=== PATIENT | female | born 1995 | race African-American/Black ===

== ENCOUNTER 2022-01-16 16:43 | Emergency (ER) | payer MEDICAID, SELFPAY ==
[2022-01-16 16:49] VITALS: BP 133/71; PULSE 62; RESP 20; TEMP 36; O2SAT 98; BMI 44.3
--- NOTE | 2022-01-16 17:36 | ED.EAR ---
HPI - Ear Problem General Time Seen by Provider: 17:00 Date Seen: 01/16/22 Chief complaint: Ear/Nose/Throat Problem Stated complaint: Right side ear pain Time Seen by Provider: 01/16/22 16:53 Source: patient, RN notes reviewed and old records reviewed Mode of arrival: ambulatory Limitations: no limitations History of Present Illness HPI Narrative: Patient is a very pleasant 26-year-old female with recent COVID infection who comes to the emergency room with complaints of right ear pain. Patient had the onset of COVID symptoms on MondayJanuary 10. Her daughter had previously tested positive. She has not had a formal test done but notes that she had cough congestion runny nose. She notes that she is feeling better at this time. Today would be day 7. Three days ago she had the onset of right ear pressure. She states that it feels like her ear drum is bulging out. She also notes when she sneezes that she can feel increased pressure in her right ear. She notes that she also has had drainage from this ear. She states that it does hurt on the outside of her ear and with external ear movement. I do ask her if she has been swimming lately and she states that she had been doing a lot of swimming prior to coming down with COVID. She remembers when she was little that she would have to wear ear plugs in the pool because of problems. She has been using Tylenol for discomfort and it has helped somewhat. Complaint: ear pain, ear discharge and decreased hearing Location: right ear Duration: constant Related Data Previous Rx's Medication Instructions Recorded fluoxetine 40 mg capsule 40 mg PO QDAY #30 caps 12/14/21 fluticasone propionate 50 2 spray intranasal QDAY #16 grams 12/14/21 mcg/actuation nasal spray,suspension (Allergy Relief (fluticasone)) Allergies Allergy/AdvReac Type Severity Reaction Status Date / Time No Known Drug Allergies Allergy Verified 01/16/22 16:52 Review of Systems Narrative: Patient notes improvement of cough. She did have fever initially with COVID but has not had a fever in the last 3 days. Denies vomiting today. Did have diarrhea initially with COVID last week. PFSH PFS Social History Smoking Status: Current every day smoker What tobacco products do you use: cigarettes Do you use any of these nicotine containing products: None Second hand tobacco smoke exposure: No How often do you have a drink containing alcohol: 2-3 times a week How many standard drinks containing alcohol do you have on a typical day: 3 or 4 How often do you have six or more drinks on one occasion: Less than monthly AUDIT-C Alcohol total score: 5 Non-prescribed substance use: denies use Exam Const: Vital Signs, click to edit/add: Vital Signs - 24 hr 01/16/22 16:49 Temperature 96.8 F L Pulse Rate [Right Pulse Oximeter] 62 Respiratory Rate 20 Blood Pressure [Ri ght Upper Arm] 133/71 Pulse Oximetry 98 Oxygen Delivery Me thod Room Air Documenting provider has reviewed patient's vital signs: yes Common normals: no apparent distress, oriented x3, no limitations, healthy appearing and alert General appearance: cooperative, comfortable and well ket HENMT: Common normals: normocephalic and head/scalp atraumatic Head and scalp: normocephalic and atraumatic External auditory canal: EAC abnormal (Increased edema and debris right ear canal) EAC laterality: right Tympanic membrane: TM normal on the left Eye: General eye: normal appearance of both eyes Neck & C-Spine: Common normals: full ROM Resp: Common normals: normal respiratory effort and clear to auscultation bilaterally Auscultation: clear to auscultation bilaterally Cardio: Common normals: regular rate and regular rhythm Rate: regular rate Rhythm: regular rhythm GI: Common normals: soft to palpation and non-tender Palpation: soft Neuro: Common normals: oriented x3 Sensorium/orientation: alert Psych: Appearance: well kempt Course Course Hospital Course: At this time patient appears to be nontoxic. She is not a diabetic. I was finally able to visualize the TM on the right and it appears to be intact and non erythematous. However, patient does have swimmer's ear or otitis externa. A wick was gently placed and patient tolerated procedure well. Vital Signs Vital signs: Initial Vital Signs Temperature 96.8 F L 01/16/22 16:49 Temperature Source Temporal Artery Scan 01/16/22 16:49 Pulse Rate 62 01/16/22 16:49 Respiratory Rate 20 01/16/22 16:49 Blood Pressure 133/71 01/16/22 16:49 Blood Pressure Mean 91 08/14/22 16:49 Blood Pressure Position Sitting 01/16/22 16:49 Pulse Oximetry 98 01/16/22 16:49 Oxygen Delivery Method 01/16/22 16:49 Vital Signs Temperature 96.8 F L 01/16/22 16:49 Pulse Rate 62 01/16/22 16:49 Respiratory Rate 20 01/16/22 16:49 Blood Pressure 133/71 01/16/22 16:49 Pulse Oximetry 98 01/16/22 16:49 Oxygen Delivery Method 01/16/22 16:49 Temperature 96.8 F L 01/16/22 16:49 Pulse Rate 62 01/16/22 16:49 Respiratory Rate 20 01/16/22 16:49 Blood Pressure 133/71 01/16/22 16:49 Pulse Oximetry 98 01/16/22 16:49 Oxygen Delivery Method 01/16/22 16:49 Medical Decision Making MDM Narrative Medical decision making narrative: 1. Right otitis externa-patient will be started on the only drops we have here which is Cortisporin otic in [facility]. She does not appear to need oral antibiotics. Three drops right ear 5 times daily for 7 days. Recommend follow-up with our ENT for recheck to ensure resolution. Patient is advised to return to the emergency room for fever, worsening symptoms and as needed. I believe her infection is from swimming and not from COVID 2. COVID-patient is on day 7 of symptoms and appears to be doing well. 3. Disposition- home. Return as needed. Discharge Plan Discharge Clinical Impression: Otitis externa Patient Disposition: Home, Self-Care Condition: Improved Additional Instructions: Recommend 3 drops into the right ear 5 times daily if possible. Recommend ibuprofen as needed for discomfort. Please follow-up with Dr. Jimenez for recheck. Call for appointment at [phone]. Return to the emergency room for fever, worsening pain and as needed. Prescriptions: No Action fluoxetine 40 mg capsule 40 mg PO QDAY Qty: 30 0RF fluticasone propionate [Allergy Relief (fluticasone)] 50 mcg/actuation spray,suspension 2 spray intranasal QDAY Qty: 16 11RF Rx Instructions: administer into each nostril Follow Up/Referrals: Michele Bella MD [Primary Care Provider] - Stand Alone Forms: [facility] Info Instructions
== END 2022-01-16 17:52 | disposition home or self-care (01) ==
LOC: ED 17:40
PROVIDERS: Emergency Provider Family Medicine; PCP Family Medicine
DX: H60.91 Unspecified otitis externa, right ear (principal)
CPT/HCPCS: 99283; 99284

== ENCOUNTER 2022-01-17 06:06 | Emergency (ER) | payer MEDICAID, SELFPAY ==
[2022-01-17 06:19] VITALS: BP 127/84; PULSE 54; RESP 16; TEMP 36.4; O2SAT 99; BMI 44.3
--- NOTE | 2022-01-17 06:38 | ED.GENADULT ---
HPI - General Adult General Time Seen by Provider: 06:38 Date Seen: 01/17/22 Chief complaint: Ear/Nose/Throat Problem Stated complaint: Ear infection Time Seen by Provider: 01/17/22 06:33 Source: patient Mode of arrival: ambulatory Limitations: no limitations History of Present Illness HPI narrative: 26-year-old female who comes in with ear pain. Patient was seen yesterday and diagnosed with otitis externa, ear wick was placed. Patient returns today with continued pain. Decreased hearing. No fever chills, no difficulty swallowing or throat pain. Has been using ear drops as directed, took Tylenol about 2 hours prior to coming emergency department. Related Data Home Medications Medication Instructions Recorded Confirmed Tylenol 01/17/22 [id number]-[id number]-thonzonium otic (ear) 01/17/22 Previous Rx's Medication Instructions Recorded fluoxetine 40 mg capsule 40 mg PO QDAY #30 caps 12/14/21 fluticasone propionate 50 2 spray intranasal QDAY #16 grams 12/14/21 mcg/actuation nasal spray,suspension (Allergy Relief (fluticasone)) Allergies Allergy/AdvReac Type Severity Reaction Status Date / Time No Known Drug Allergies Allergy Verified 01/17/22 06:23 Review of Systems Status of ROS: Reports: 10 or more systems reviewed and unremarkable except as noted in History and below PFSH PFS Social History Smoking Status: Current every day smoker What tobacco products do you use: cigarettes Do you use any of these nicotine containing products: None Second hand tobacco smoke exposure: No How often do you have a drink containing alcohol: 2-3 times a week How many standard drinks containing alcohol do you have on a typical day: 3 or 4 How often do you have six or more drinks on one occasion: Less than monthly AUDIT-C Alcohol total score: 5 Non-prescribed substance use: denies use Exam Narrative: Exam Narrative: General: well nourished , NAD Head: Atraumatic and normocephalic ENT: External ears and external nose are normal. Ear wick in place on the right, this was removed. Moderate swelling of the external auditory canal without drainage, tympanic membrane is pearly marx them out bulging or erythema Eyes: Conjunctiva clear, pupils are equal reactive, external ocular motions are intact Neck: Full spontaneous range of motion of the neck Lungs: No respiratory distress Musculoskeletal: No tenderness or deformity Neurologic: No gross focal neurologic deficits Skin: No rashes Psych: Mood and affect are appropriate Const: Vital Signs, click to edit/add: Vital Signs - 24 hr 01/17/22 06:19 Temperature 97.6 F Pulse Rate [Right Pulse Oximeter] 54 L Respiratory Rate 16 Blood Pressure [Le ft Upper Arm] 127/84 Pulse Oximetry 99 Oxygen Delivery Me thod Room Air Course Course Hospital Course: Patient seen examined, prior records reviewed reviewed. Patient diagnosed with otitis externa yesterday, ear wick was placed and patient was given ear drops. Ear wick read moved here, tympanic membrane is visualized with no bulging or redness. Continue antibiotic drops, Tylenol ibuprofen as needed for pain. Vital Signs Vital signs: Initial Vital Signs Temperature 97.6 F 01/17/22 06:19 Temperature Source Temporal Artery Scan 01/17/22 06:19 Pulse Rate 54 L 01/17/22 06:19 Respiratory Rate 16 01/17/22 06:19 Blood Pressure 127/84 01/17/22 06:19 Blood Pressure Mean 98 01/17/22 06:19 Blood Pressure Position Sitting 01/17/22 06:19 Pulse Oximetry 99 01/17/22 06:19 Oxygen Delivery Method 01/17/22 06:19 Vital Signs Temperature 97.6 F 01/17/22 06:19 Pulse Rate 54 L 01/17/22 06:19 Respiratory Rate 16 01/17/22 06:19 Blood Pressure 127/84 01/17/22 06:19 Pulse Oximetry 99 01/17/22 06:19 Oxygen Delivery Method 01/17/22 06:19 Temperature 97.6 F 01/17/22 06:19 Pulse Rate 54 L 01/17/22 06:19 Respiratory Rate 16 01/17/22 06:19 Blood Pressure 127/84 01/17/22 06:19 Pulse Oximetry 99 01/17/22 06:19 Oxygen Delivery Method 01/17/22 06:19 Medical Decision Making Medical Records Medical records reviewed: Yes I reviewed the patient's medical records Lab Data Lab results reviewed: Yes I reviewed the patient's lab results Discharge Plan Discharge Clinical Impression: Otitis externa Patient Disposition: Home, Self-Care Condition: Improved Instructions: Otitis Externa (DC) Additional Instructions: Continue ear drops as prescribed, Tylenol and ibuprofen as needed for pain Activity Level: No Restrictions Discharge Diet: Regular Prescriptions: No Action [id number]-OH-thonzonium [Cortisporin-TC] otic (ear) Tylenol fluoxetine 40 mg capsule 40 mg PO QDAY Qty: 30 0RF fluticasone propionate [Allergy Relief (fluticasone)] 50 mcg/actuation spray,suspension 2 spray intranasal QDAY Qty: 16 11RF Rx Instructions: administer into each nostril Follow Up/Referrals: Michele Bella MD [Primary Care Provider] - Stand Alone Forms: [employer] Info Instructions
== END 2022-01-17 06:51 | disposition home or self-care (01) ==
LOC: ED 06:43
PROVIDERS: Emergency Provider Family Medicine; PCP Family Medicine
DX: H60.91 Unspecified otitis externa, right ear (principal)
CPT/HCPCS: 99282

== ENCOUNTER 2023-03-03 15:03 | Outpatient (CLI) | payer MEDICAID, SELFPAY | END 2023-03-03 15:04 | disposition home or self-care (01) | PROVIDERS: PCP Family Medicine; Visit Provider Family Medicine | DX: F10.10 Alcohol abuse, uncomplicated (principal) | CPT/HCPCS: 80048; 80076 ==

== ENCOUNTER 2023-03-30 11:49 | Emergency (ER) | payer MEDICAID, SELFPAY ==
[2023-03-30 12:01] VITALS: BP 139/95; PULSE 118; RESP 16; TEMP 36.8; O2SAT 97; BMI 37.8
[2023-03-30 13:05] LABS: Strep A DNA Probe* DETECTED (Not Detectd)
--- NOTE | 2023-03-30 14:16 | ED.GENADULT ---
HPI - General Adult General Chief complaint: Dizziness/Vertigo Stated complaint: Heart pounding, faint Time Seen by Provider: 03/30/23 13:21 History of Present Illness HPI narrative: This is a pleasant 27-year-old female who has a past medical history including ADHD and depression/anxiety (on Adderall, fluoxetine, bupropion) who presents to the ER today with an episode of dizziness, lightheadedness, heart racing, as well as a sore throat. When she woke up this morning she had a sore throat on the left side of her throat. No recent sick exposures. Was sore when she swallowed but she was able to eat and drink. She feels like she is staying hydrated. She was at work this morning at around 11 in addition to the sore throat began to feel dizzy, lightheaded. She felt like her heart was racing. She also developed tingling affecting both of her hands and forearms. She did not faint. She thought maybe she might be dehydrated so she sat down to drink some water but did not feel much better. She felt dizzy and lightheaded so had her co-worker drive her here to the ER. She has an [employer] watch and told her that her heart rate was around 150. Now that she is here in the ER she is feeling a bit better but still somewhat dizzy and shaky. Heart rate has improved down to the 100s-110. She was not having any chest pain. No shortness of breath. No cough. No vomiting. No diarrhea. No swelling in her legs. Or she has not had a fever yet. He she has no history of any heart problems or arrhythmia. No family history of heart problems or sudden . Related Data Home Medications Medication Instructions Recorded Confirmed paraguard intrauterine 02/11/22 03/03/23 Previous Rx's Medication Instructions Recorded albuterol sulfate 90 mcg/actuation 2 puff inhalation Q4-6H PRN 02/11/22 aerosol inhaler (ProAir HFA) shortness of breath or wheezing #8.5 grams bupropion HCl 300 mg 24 hr tablet, 300 mg PO QAM #90 tabs 07/29/22 extended release (Wellbutrin XL) ondansetron 4 mg disintegrating 4 mg PO Q6H PRN nausea and 10/24/22 tablet vomiting #30 tabs dextroamphetamine-amphetamine ER 30 mg PO QAM #30 caps 03/03/23 30 mg 24hr capsule,extend release (Adderall XR) dextroamphetamine-amphetamine ER 30 mg PO QAM #30 caps 03/03/23 30 mg 24hr capsule,extend release (Adderall XR) fluoxetine 40 mg capsule 40 mg PO QDAY #90 caps 03/03/23 azithromycin 500 mg tablet 500 mg PO DAILY 5 days #5 tabs 03/30/23 Allergies Allergy/AdvReac Type Severity Reaction Status Date / Time amoxicillin Allergy Unknown Unknown Verified 03/30/23 12:00 [facility] Medical History (Updated 03/30/23 @ 13:[address] MD) ETOH abuse ?F10.10 - Alcohol abuse, uncomplicated (ICD-10) ADHD, predominantly inattentive type ?F90.0 - Attention-deficit hyperactivity disorder, predominantly inattentive type (ICD-10) ASCUS with positive high risk HPV Suicidal ideation ?R45.851 - Suicidal ideations (ICD-10) Insomnia ?G47.00 - Insomnia, unspecified (ICD-10) Seasonal allergies ?J30.2 - Other seasonal allergic rhinitis (ICD-10) Anxiety ?F41.9 - Anxiety disorder, unspecified (ICD-10) Major depression, recurrent ?F33.9 - Major depressive disorder, recurrent, unspecified (ICD-10) Surgical History Normal spontaneous vaginal delivery ?O80 - Encounter for full-term uncomplicated delivery (ICD-10) History of lumpectomy (2008) ?Z98.890 - Other specified postprocedural states (ICD-10) Family History Mother Bipolar 1 disorder Maternal Grandmother Cancer Other Breast cancer Social History Narrative: Single, Live in boyfriend - one kid social drinker 6/per week tobacco abuse 10-12 a day-4 years Smoking Status: Current every day smoker What tobacco products do you use: cigarettes Smoking packs per day: 0.5 Smoking cigarettes per day: 10.0 Years smoked: 10 Smoking pack-years: 5.00 Do you use any of these nicotine containing products: None Second hand tobacco smoke exposure: No How often do you have a drink containing alcohol: 4 or more times a week How many standard drinks containing alcohol do you have on a typical day: 5 or 6 How often do you have six or more drinks on one occasion: Weekly AUDIT-C Alcohol total score: 9 Non-prescribed substance use: denies use Little interest or pleasure in doing things: several days Feeling down, depressed, or hopeless: more than half the days service: No Exam Narrative: Exam Narrative: Constitutional: Appears well-developed and well-nourished. Alert. Conversant. Non toxic. HENT: Head: Atraumatic. Nose: Nose normal. Mouth/Throat: Oral mucosa is clear and moist. no trismus. Pharynx erythematous.. Tonsils symmetric. Uvula midline. Phonation normal. No tonsillar erythema, or exudate. Eyes: Conjunctivae normal. EOM normal. Pupils equal, round, and reactive to light. No scleral icterus. Neck: Normal range of motion. Neck supple. No tracheal deviation present. No JVD. No thyromegaly Cardiovascular: Tachycardic, regular rhythm. No gallop. No friction rub. No murmur heard. Symmetric radial artery pulses Pulmonary/Chest: Effort normal. No stridor. No respiratory distress. No wheezes. No rales. No rhonchi . No tenderness. Abdominal: Soft. Bowel sounds normal. No distension. No mass. No HSM. No tenderness. No rebound. No guarding. Musculoskeletal: RUE: Normal range of motion. No tenderness. No deformity LUE: Normal range of motion. No tenderness. No deformity RLE: Normal range of motion. No edema. No tenderness. No deformity LLE: Normal range of motion. No edema. No tenderness. No deformity Lymph: No cervical adenopathy. Neurological: Alert and oriented to person, place, and time. Normal strength. CN II-VII intact. No sensory deficit. GCS eye subscore is 4. GCS verbal subscore is 5. GCS motor subscore is 6. Normal coordination Skin: Skin is warm and dry. No rash noted. No pallor. Normal capillary refill. Psychiatric: Normal mood. Normal affect. Const: Vital Signs, click to edit/add: Vital Signs - 24 hr 03/30/23 12:01 Temperature 98.2 F Pulse Rate [Pulse Oximeter] 118 H Respiratory Rate 16 Blood Pressure [Ri ght Upper Arm] 139/95 H Pulse Oximetry 97 Oxygen Delivery Me thod Room Air Course Vital Signs Vital signs: Initial Vital Signs Temperature 98.2 F 03/30/23 12:01 Temperature Source Temporal Artery Scan 03/30/23 12:01 Pulse Rate 118 H 03/30/23 12:01 Pulse Rhythm Regular 03/30/23 12:01 Pulse Strength 3+ Normal 03/30/23 12:01 Respiratory Rate 16 03/30/23 12:01 Blood Pressure 139/95 H 03/30/23 12:01 Blood Pressure Mean 109 H 03/30/23 12:01 Blood Pressure Position Sitting 03/30/23 12:01 Pulse Oximetry 97 03/30/23 12:01 Oxygen Delivery Method Room Air 03/30/23 12:01 Vital Signs Temperature 98.2 F 03/30/23 12:01 Pulse Rate 118 H 03/30/23 12:01 Respiratory Rate 16 03/30/23 12:01 Blood Pressure 139/95 H 03/30/23 12:01 Pulse Oximetry 97 03/30/23 12:01 Oxygen Delivery Method Room Air 03/30/23 12:01 Temperature 98.2 F 03/30/23 12:01 Pulse Rate 118 H 03/30/23 12:01 Respiratory Rate 16 03/30/23 12:01 Blood Pressure 139/95 H 03/30/23 12:01 Pulse Oximetry 97 03/30/23 12:01 Oxygen Delivery Method Room Air 03/30/23 12:01 Medical Decision Making MDM Narrative Medical decision making narrative: This patient presented with a episode of dizziness and heart racing that began around 11:00 a.m. this morning also associated with sore throat that began when she woke up this morning. In terms of her sore throat, she does have clinical evidence of pharyngitis. The strep test is positive. There is no clinical evidence of peritonsillar abscess, retropharyngeal abscess, Lemierre's Syndrome, epiglottis, or Eduin's angina. The patient's symptoms are consistent with streptococcal pharyngitis. I have recommended treatment with antibiotics and analgesics. In terms of the dizzy spell I suspect this is probably a constitutional symptom related to her strep throat. Differential would include cardiovascular problems such as arrhythmia. She was not having any chest pain suggest ACS, PE, or other life-threatening causes. No cough, no shortness of breath, and clear lungs on exam would argue against any wheezing or bronchospasm, or pneumonia. Would hold off on chest x-ray for now. EKG with G was obtained to look for possible arrhythmias or arrhythmogenic abnormalities. EKG shows sinus tach with heart rate of 105. No WPW, delta waves, prolonged QT, Brugada syndrome, ischemia, or any other clear rhythm genic abnormality. At this point she is feeling better. She is hemodynamically stable is a side for sinus tach. She is not febrile. She is not toxic appearing. Doubt bacteremia. Well managed supportively at home with oral fluids, pain meds as needed, rest. Return if increasing pain, change in voice, neck pain, vomiting, fever, worsening dizziness, developing chest pain or shortness of breath, or any other concerns.. Follow-up with primary physician if not improving in 3-5 days Lab Data Labs: Lab Results 03/30/23 Range/Units 12:05 Group A Strep DNA DETECTED A (Not Detectd) ECG Data Attestation: I personally reviewed and interpreted this ECG as follows: Interpretation: Sinus tachycardia. Rate 102 VA 142. No delta waves. QRS axis normal axis. No pathologic Q-waves. ST segment/T wave: No ST segment elevation or depression. QTc: 430. No Brugada syndrome. No S1 Q 3 T3. No right a right bundle-branch block or other signs of right heart strain. Discharge Plan Discharge Clinical Impression: Dizziness, Acute streptococcal pharyngitis Patient Disposition: Home, Self-Care Condition: Stable Instructions: Strep Throat (DC), Dizziness (ED) Additional Instructions: As we discussed your EKG looks good. We suspect that your racing heart and dizzy spell or probably symptoms of your strep throat. Please start on the antibiotics to treat your strep throat. Rest. Use Tylenol or ibuprofen if needed for pain or fever or body aches. Drink plenty of fluids and stay hydrated. Monitor carefully. If you have worsening symptoms, please see your doctor right away or come back to the ER for recheck. If you are getting worse you may need IV fluids and lab workup. It typically takes several days for strep to get better after starting on antibiotics. You will be contagious with strep for the 1st 24 hours, so stay home from work at least through tomorrow Prescriptions: New azithromycin 500 mg tablet 500 mg PO DAILY 5 Days Qty: 5 0RF No Action paraguard intrauterine albuterol sulfate [ProAir HFA] 90 mcg/actuation HFA aerosol inhaler 2 puff inhalation Q4-6H PRN (Reason: shortness of breath or wheezing) Qty: 8.5 1RF bupropion HCl [Wellbutrin XL] 300 mg tablet extended release 24 hr 300 mg PO QAM Qty: 90 3RF dextroamphetamine-amphetamine [Adderall XR] 30 mg capsule,extended release 24hr 30 mg PO QAM Qty: 30 0RF dextroamphetamine-amphetamine [Adderall XR] 30 mg capsule,extended release 24hr 30 mg PO QAM Qty: 30 0RF fluoxetine 40 mg capsule 40 mg PO QDAY Qty: 90 3RF ondansetron 4 mg tablet,disintegrating 4 mg PO Q6H PRN (Reason: nausea and vomiting) Qty: 30 0RF Follow Up/Referrals: Michele Bella MD [Primary Care Provider] - Stand Alone Forms: [employer] Info Instructions
== END 2023-03-30 14:08 | disposition home or self-care (01) ==
PROVIDERS: Emergency Provider Emergency Medicine; PCP Family Medicine
DX: J02.0 Streptococcal pharyngitis (principal); R42 Dizziness and giddiness
CPT/HCPCS: 87651; 93005; 99283; 99284

== ENCOUNTER 2023-07-26 18:20 | Emergency (ER) | payer MEDICAID, SELFPAY ==
[2023-07-26 18:33] VITALS: BP 146/101; PULSE 93; RESP 14; TEMP 37.4; O2SAT 97; BMI 36.9
[2023-07-26 18:45] LABS: Appearance Urine Clear (Clear); Bilirubin Urine Negative (Negative); Blood Urine Negative (Negative); Color Urine Yellow (Yellow); Glucose Urine Negative (Negative); Ketones Urine Negative (Negative); Leukocyte Esterase Urine Negative (Negative); Nitrite Urine Negative (Negative); Protein Urine Negative (Negative); Urobilinogen Urine 0.2 (0.2-1.0); pH Urine 6.5 (5.0-8.5)
--- NOTE | 2023-07-26 19:07 | ED.ABDPAIN ---
HPI - Abdominal Pain General Time Seen by Provider: 19:07 Date Seen: 07/26/23 Chief Complaint: Abdominal Pain Stated Complaint: Abdominal pain Time Seen by Provider: 07/26/23 19:06 Source: patient and RN notes reviewed Mode of arrival: ambulatory Limitations: no limitations History of Present Illness HPI narrative: Jeannine is a very pleasant 27-year-old female with history of alcohol use, ADHD, elevated liver function tests who comes to the emergency room with worries regarding abdominal pain. Patient notes the onset of abdominal pain today initially in the periumbilical area. She describes it as a stabbing pain. The pain then radiated to her right lower quadrant. Tonight it is in her right lower quadrant but again she is experiencing periumbilical feeling. She states she looked in her belly button but did not see anything. She has not had any unusual diarrhea. She has no chest pain shortness of breath and has not had a fever. She denies dysuria or blood in her urine or history of kidney stones. Patient is wondering if we will be testing for pancreatitis as she does use alcohol frequently. Patient is a single mother. She has her mother in [facility] and her child who companies her with her tonight goes to daycare during the day. Related Data Home Medications Medication Instructions Recorded Confirmed paraguard intrauterine 02/11/22 06/20/23 Previous Rx's Medication Instructions Recorded albuterol sulfate 90 mcg/actuation 2 puff inhalation Q4-6H PRN 02/11/22 aerosol inhaler (ProAir HFA) shortness of breath or wheezing #8.5 grams bupropion HCl 300 mg 24 hr tablet, 300 mg PO QAM #90 tabs 07/29/22 extended release (Wellbutrin XL) fluoxetine 40 mg capsule 40 mg PO QDAY #90 caps 03/03/23 dextroamphetamine-amphetamine ER 30 mg PO QAM #30 caps 06/06/23 30 mg 24hr capsule,extend release (Adderall XR) dextroamphetamine-amphetamine ER 30 mg PO QAM #30 caps 06/06/23 30 mg 24hr capsule,extend release (Adderall XR) Allergies Allergy/AdvReac Type Severity Reaction Status Date / Time amoxicillin Allergy Unknown Unknown Verified 07/26/23 20:19 Review of Systems Status of ROS Reports: 10 or more systems reviewed and unremarkable except as noted in History and below Const Reports: fatigue; Denies: fever or chills Eyes Denies: change in vision ENMT Denies: neck pain or throat swelling Cardio Denies: chest pain, palpitations, swelling of feet/ankles or shortness of breath with exertion Resp Denies: shortness of breath or cough GI Reports: abdominal pain, nausea and vomiting (One episode); Denies: diarrhea, constipation or blood in stool Denies: painful urination, urinary frequency or urinary urgency Musculo Denies: back pain or neck pain Integ/Breast Denies: rash Neuro Denies: headache or numbness in extremities Endo Reports: fatigue Allergy/Immuno Denies: throat swelling PFSH PFSH Medical History ETOH abuse ?F10.10 - Alcohol abuse, uncomplicated (ICD-10) ADHD, predominantly inattentive type ?F90.0 - Attention-deficit hyperactivity disorder, predominantly inattentive type (ICD-10) ASCUS with positive high risk HPV Suicidal ideation ?R45.851 - Suicidal ideations (ICD-10) Insomnia ?G47.00 - Insomnia, unspecified (ICD-10) Seasonal allergies ?J30.2 - Other seasonal allergic rhinitis (ICD-10) Anxiety ?F41.9 - Anxiety disorder, unspecified (ICD-10) Major depression, recurrent ?F33.9 - Major depressive disorder, recurrent, unspecified (ICD-10) Surgical History Normal spontaneous vaginal delivery ?O80 - Encounter for full-term uncomplicated delivery (ICD-10) History of lumpectomy (2008) ?Z98.890 - Other specified postprocedural states (ICD-10) Family History Mother Bipolar 1 disorder Maternal Grandmother Cancer Other Breast cancer Social History Narrative: Single, Live in boyfriend - one kid social drinker 6/per week tobacco abuse 10-12 a day-4 years Smoking Status: Current every day smoker What tobacco products do you use: cigarettes Smoking packs per day: 0.5 Smoking cigarettes per day: 10.0 Years smoked: 10 Smoking pack-years: 5.00 Do you use any of these nicotine containing products: None Second hand tobacco smoke exposure: No How often do you have a drink containing alcohol: 4 or more times a week How many standard drinks containing alcohol do you have on a typical day: 5 or 6 How often do you have six or more drinks on one occasion: Weekly AUDIT-C Alcohol total score: 9 Non-prescribed substance use: denies use Little interest or pleasure in doing things: several days Feeling down, depressed, or hopeless: more than half the days service: No Exam Narrative: Exam Narrative: Patient is alert and oriented. No acute distress. I do not smell the odor of alcohol. External ears eyes nose clear. Neck is supple without lymphadenopathy. Heart with regular rate and rhythm and lungs are clear bilaterally. Abdomen is with mild tenderness in the right lower quadrant. No significant rebound tenderness. I do hit the bottom of her foot and there is no pain in the abdomen. Internal external rotation of the hip does not cause increased discomfort. Bowel sounds are present and are normal. Const: Vital Signs, click to edit/add: Vital Signs - 24 hr 07/26/23 18:33 Temperature 99.3 F Pulse Rate [Pulse Oximeter] 93 Respiratory Rate 14 Blood Pressure [Ri ght Upper Arm] 146/101 H Pulse Oximetry 97 Oxygen Delivery Me thod Room Air Documenting provider has reviewed patient's vital signs: yes Course Course ED Course: At this time differential diagnosis does include but is not limited to appendicitis, bowel obstruction, colitis, hernia, UTI, kidney stone, pancreatitis, biliary colic, GI enteritis. Will place IV give normal saline as well as dose of Toradol. Given patient's worries regarding her alcohol use, abdominal discomfort I do think we should proceed with CT even though we do not have labs returned at this time. Patient is in agreement. Vital Signs Vital signs: Initial Vital Signs Temperature 99.3 F 07/26/23 18:33 Temperature Source Oral 07/26/23 18:33 Pulse Rate 93 07/26/23 18:33 Pulse Rhythm Regular 07/26/23 18:33 Respiratory Rate 14 07/26/23 18:33 Blood Pressure 146/101 H 07/26/23 18:33 Blood Pressure Mean 116 H 07/26/23 18:33 Blood Pressure Position Sitting 07/26/23 18:33 Pulse Oximetry 97 07/26/23 18:33 Oxygen Delivery Method Room Air 07/26/23 18:33 Vital Signs Temperature 99.3 F 07/26/23 18:33 Pulse Rate 93 07/26/23 18:33 Respiratory Rate 14 07/26/23 18:33 Blood Pressure 146/101 H 07/26/23 18:33 Pulse Oximetry 97 07/26/23 18:33 Oxygen Delivery Method Room Air 07/26/23 18:33 Temperature 99.3 F 07/26/23 18:33 Pulse Rate 93 07/26/23 18:33 Respiratory Rate 14 07/26/23 18:33 Blood Pressure 146/101 H 07/26/23 18:33 Pulse Oximetry 97 07/26/23 18:33 Oxygen Delivery Method Room Air 07/26/23 18:33 Medications Administered Medications: Discontinued Medications Generic Name Dose Route Start Last Admin Trade Name Freq PRN Reason Stop Dose Admin Sodium Chloride 1,000 mls @ 1,000 mls/hr 07/26/23 19:16 07/26/23 21:07 0.9 % Sodium Chloride 1000 Ml IV 07/26/23 20:15 Infused .Q1H MELODY Infusion Ketorolac Tromethamine 15 mg 07/26/23 19:16 07/26/23 19:32 Ketorolac 15 Mg/Ml Inj IVP 07/26/23 19:17 15 mg ONCE ONE Administration MDM - Abdominal Pain MDM Narrative Medical decision making narrative: 1. Abdominal pain-CT of the abdomen is reassuring with no evidence of appendicitis. Patient seems improved after Toradol 15 mg IV and 1 L of normal saline. At this time continue to monitor min seek medical attention for worsening symptoms to white count and CRP reassuring. 2. Increased alcohol use-patient notes that she is drinking daily. Her last drink was early this morning. She notes that she does get shaky if she does not drink every day. She did not smell of alcohol tonight nor did she appear to be under the influence. I am worried however because certainly her LFTs are elevated and she is showing signs of drinking sequelae. Spoke with her about seeking treatment tonight and she declines. I did state that we are here for her if she would decide to stop drinking. She would certainly go through withdrawal. I would suggest that she come in if she is going through withdrawal after making arrangements for someone to care for her child. I did state that sometimes we are able to use Ativan on an outpatient basis if we can be guarantee there be no further drinking or sometimes we need to admit or send people for detox under supervision. She will think about this. 3. Elevated LFTs AST of 194 an ALT of 111. Related to alcohol use. Hepatomegaly noted on CT. 3. Disposition-home at this time. Seek medical attention for worsening symptoms. Medical Records Attestation: I reviewed the patient's medical records. Lab Data Attestation: I reviewed the patient's lab results. Labs: Lab Results 07/26/23 07/26/23 07/26/23 Range/Units 18:30 19:16 19:32 WBC 9.19 (4.50-11.00) K/uL RBC 4.27 (4.00-5.20) m/uL Hgb 13.5 (12.0-16.0) gm/dL Hct 40.5 (33.0-51.0) % MCV 95 (80-100) fL MCH 32 (26-34) pg MCHC 33 (32-36) gm/dL RDW Coeff of Melissa 11.8 (11.5-15.5) % Plt Count 306 (140-440) K/uL Neut % (Auto) 56.7 (42.0-72.0) % Lymph % (Auto) 33.9 (20-44) % [place] % (Auto) 6.6 (0.0-11.0) % Eos % (Auto) 2.3 (0.0-7.0) % Baso % (Auto) 0.3 (0.0-3.0) % Neut # (Auto) 5.20 (1.7-7.0) K/uL Lymph # (Auto) 3.12 H (0.90-2.90) K/uL [place] # (Auto) 0.60 (0.00-0.90) K/UL Eos # (Auto) 0.21 (0.00-0.50) K/uL Baso # (Auto) 0.03 (0.00-0.30) K/uL Abs Immat Gran (auto) 0.02 (0.00-0.30) K/uL Imm/Tot Granulo (auto) 0.2 % Sodium 140 (135-149) mmol/L Potassium 3.6 (3.6-5.1) mmol/L Chloride 100 (96-114) mmol/L Carbon Dioxide 25 (20-32) mmol/L Anion Gap 15 (7-15) mEq/L BUN 6 (5-24) mg/dL Creatinine 0.8 (0.5-1.5) mg/dL Estimated Creat Clear 90.41 Estimated GFR 103 ml/min Glucose 87 (60-115) mg/dL Calcium 10.0 (8.4-10.6) mg/dL Magnesium 2.2 (1.5-2.6) mg/dL Total Bilirubin 1.3 (0.1-1.5) mg/dL AST 194 H (12-35) U/L ALT 111 H (4-35) U/L Alkaline Phosphatase 67 (40-150) U/L C-Reactive Protein < 0.5 L (0.5-1.0) mg/dL Total Protein 9.5 H (6.0-8.3) g/dL Albumin 5.1 H (3.3-5.0) g/dL Lipase 86 (23-300) U/L Urine Color Yellow Cancelled (Yellow) Urine Appearance Clear Cancelled (Clear) Urine pH 6.5 Cancelled (5.0-8.5) Ur Specific [place] 1.010 Cancelled (1.000-1.030) Urine Protein Negative Cancelled (Negative) Urine Glucose (UA) Negative Cancelled (Negative) Urine Ketones Negative Cancelled (Negative) Urine Blood Negative Cancelled (Negative) Urine Nitrite Negative Cancelled (Negative) Urine Bilirubin Negative Cancelled (Negative) Urine Urobilinogen 0.2 Cancelled (0.2-1.0) Ur Leukocyte Esterase Negative Cancelled (Negative) Urine RBC 0-2 Cancelled (0-2) Urine WBC 0-2 Cancelled (0-5) Urine WBC Clumps Cancelled Ur Squamous Epith Cells Few Cancelled (None-Few) [place] Biurate Crystals Cancelled Calcium Carbonate Cryst Cancelled Calcium Phosphate Cryst Cancelled Calcium Oxalate Crystal Cancelled Cystine Crystals Cancelled Uric Acid Crystals Cancelled Triple Phos Crystals Cancelled Sulfur Crystals Cancelled Cholesterol Crystals Cancelled Tyrosine Crystals Cancelled Hippuric Acid Crystals Cancelled Amorphous Sediment Cancelled Other Sediment Cancelled Urine Bacteria None Cancelled (None) Fatty Casts Cancelled Hyaline Casts Cancelled Fine Granular Casts Cancelled Coarse Granular Casts Cancelled Waxy Casts Cancelled RBC Casts Cancelled WBC Casts Cancelled Other Casts Cancelled Urine Starch Cancelled Urine Mucus Cancelled Urine Trichomonas Cancelled Urine Yeast Cancelled Urine HCG, Qual Negative (Negative) Imaging Data CT scan - abdomen: Attestation: I have reviewed the pertinent imaging results. Radiologist's impression: Liver: Diffuse hepatic steatosis. Hepatomegaly, liver measures up to 19.7 cm in cranial caudal dimension. Gallbladder and bile ducts: Unremarkable. Pancreas: Unremarkable. Spleen: Punctate calcified granulomas. Subcentimeter hypodense lesion in the posterior spleen, statistically benign. Adrenal glands: Unremarkable. Kidneys: Kidneys enhance symmetrically, without hydronephrosis. Retroperitoneum: No lymphadenopathy. Bowel and mesentery: Bowel is not obstructed. No significant ascites, no pneumoperitoneum. Normal appendix. Bladder: Circumferential bladder wall thickening. Reproductive organs: Intrauterine contraceptive device is noted. Pelvic lymph nodes: No lymphadenopathy. Vessels: Unremarkable. Abdominal wall: No acute abdominal wall abnormality. Bones: No suspicious/aggressive focal osseous lesion. IMPRESSION: 1. Normal appendix. 2. Circumferential urinary bladder wall thickening, concerning for cystitis. Recommend correlation with urinalysis. 3. Diffuse hepatic steatosis, and hepatomegaly. Discharge Plan Discharge Clinical Impression: Abdominal pain Qualifiers: Abdominal location: periumbilical Qualified Code(s): R10.33 - Periumbilical pain Patient Disposition: Home, Self-Care Condition: Improved Instructions: Abdominal Pain (ED) Additional Instructions: At this time CT of your abdomen does not show appendicitis, bowel obstruction or other abnormality. Ibuprofen or Tylenol may be used for discomfort. I would not be surprised if you developed some diarrhea. You will need to return to the emergency room for worsening symptoms including fever, worsening abdominal pain and as needed. Please know that if you decide to discontinue alcohol use we are here to help you. Activity Level: No Restrictions Discharge Diet: Regular Prescriptions: No Action paraguard intrauterine albuterol sulfate [ProAir HFA] 90 mcg/actuation HFA aerosol inhaler 2 puff inhalation Q4-6H PRN (Reason: shortness of breath or wheezing) Qty: 8.5 1RF bupropion HCl [Wellbutrin XL] 300 mg tablet extended release 24 hr 300 mg PO QAM Qty: 90 3RF fluoxetine 40 mg capsule 40 mg PO QDAY Qty: 90 3RF dextroamphetamine-amphetamine [Adderall XR] 30 mg capsule,extended release 24hr 30 mg PO QAM Qty: 30 0RF dextroamphetamine-amphetamine [Adderall XR] 30 mg capsule,extended release 24hr 30 mg PO QAM Qty: 30 0RF Follow Up/Referrals: Michele Bella MD [Primary Care Provider] - Stand Alone Forms: [employer] Info Instructions
[2023-07-26 19:21] LABS: RBC Urine 0-2 (0-2); WBC Urine 0-2 (0-5)
[2023-07-26 19:22] LABS: Squamous Epithelial Cell Urine Few (None-Few)
[2023-07-26] MEDS: KETOROLAC 15 MG/ML inj IVP (19:32)
[2023-07-26] MEDS: 0.9 % SODIUM CHLORIDE 1000 ml 1,000 ML IV (19:33)
[2023-07-26 19:42] LABS: Basophils Absolute Auto 0.03 K/uL (0.00-0.30); Basophils Percent Auto 0.3 % (0.0-3.0); Eosinophils Absolute Auto 0.21 K/uL (0.00-0.50); Eosinophils Percent Auto 2.3 % (0.0-7.0); Hematocrit 40.5 % (33.0-51.0); Hemoglobin* 13.5 gm/dL (12.0-16.0); Immature Granulocytes Abs Auto 0.02 K/uL (0.00-0.30); Immature Granulocytes Pct Auto 0.2 %; Lymphocytes Absolute Auto 3.12 K/uL (0.90-2.90); Lymphocytes Percent Auto 33.9 % (20-44); Mean Corpuscular HGB Conc 33 gm/dL (32-36); Mean Corpuscular Hemoglobin 32 pg (26-34); Mean Corpuscular Volume 95 fL (80-100); Monocytes Percent Auto 6.6 % (0.0-11.0); Neutrophils Percent Auto 56.7 % (42.0-72.0); Platelet Count* 306 K/uL (140-440); RDW Coefficient of Variation % 11.8 % (11.5-15.5); Red Blood Count 4.27 m/uL (4.00-5.20); White Blood Count* 9.19 K/uL (4.50-11.00)
[2023-07-26 19:48] LABS: Slide Review Reflex No
[2023-07-26 19:52] LABS: Ur HCG Qualitative* Negative (Negative)
--- NOTE | 2023-07-26 19:59 | CT_ITS ---
Final Report Patient: PEPE Serra [facility] Facility:?[facility] Patient ID:?[id number] Site Patient ID:?[id number]. Site :?1995 Study:?CT Abdomen/Pelvis W/ 106CC ISOVUE 370-07/26/2023 8:22:44 PM Ordering Physician:JUSTIN Final Report: INDICATION: Periumbilical and right lower quadrant pain. TECHNIQUE: CT abdomen and pelvis acquired with 160 mL Isovue 370 contrast. COMPARISON: None available. FINDINGS: Lower chest: No focal consolidation. Liver: Diffuse hepatic steatosis. Hepatomegaly, liver measures up to 19.7 cm in cranial caudal dimension. Gallbladder and bile ducts: Unremarkable. Pancreas: Unremarkable. Spleen: Punctate calcified granulomas. Subcentimeter hypodense lesion in the posterior spleen, statistically benign. Adrenal glands: Unremarkable. Kidneys: Kidneys enhance symmetrically, without hydronephrosis. Retroperitoneum: No lymphadenopathy. Bowel and mesentery: Bowel is not obstructed. No significant ascites, no pneumoperitoneum. Normal appendix. Bladder: Circumferential bladder wall thickening. Reproductive organs: Intrauterine contraceptive device is noted. Pelvic lymph nodes: No lymphadenopathy. Vessels: Unremarkable. Abdominal wall: No acute abdominal wall abnormality. Bones: No suspicious/aggressive focal osseous lesion. IMPRESSION: 1. Normal appendix. 2. Circumferential urinary bladder wall thickening, concerning for cystitis. Recommend correlation with urinalysis. 3. Diffuse hepatic steatosis, and hepatomegaly. Please note that all CT scans at this facility use dose modulation, iterative reconstruction, and/or weight-based dosing when appropriate to reduce radiation dose to as low as reasonably achievable. Dictated by Tejinder Meneses MD @ 07/26/2023 8:42:41 PM (Electronic Signature)
[2023-07-26 20:22] LABS: Albumin* 5.1 g/dL (3.3-5.0); Chloride* 100 mmol/L (96-114)
[2023-07-26 20:23] LABS: Potassium* 3.6 mmol/L (3.6-5.1); Sodium* 140 mmol/L (135-149)
[2023-07-26 20:25] LABS: Alkaline Phosphatase* 67 U/L (40-150); Anion Gap 15 mEq/L (7-15); Aspartate Amino Transferase* 194 U/L (12-35); Bilirubin Total* 1.3 mg/dL (0.1-1.5); Blood Urea Nitrogen* 6 mg/dL (5-24); Carbon Dioxide* 25 mmol/L (20-32); Creatinine* 0.8 mg/dL (0.5-1.5); Est. Creatinine Clearance* 90.41; Estimated Glomerular Filt Rate 103 ml/min; Lipase* 86 U/L (23-300); Total Protein* 9.5 g/dL (6.0-8.3)
[2023-07-26 20:26] LABS: Alanine Aminotransferase* 111 U/L (4-35); Glucose* 87 mg/dL (60-115); Magnesium* 2.2 mg/dL (1.5-2.6)
[2023-07-26 20:30] LABS: C Reactive Protein* < 0.5 mg/dL (0.5-1.0)
== END 2023-07-26 21:07 | disposition home or self-care (01) ==
PROVIDERS: Emergency Provider Family Medicine; PCP Family Medicine
DX: R10.33 Periumbilical pain (principal)
CPT/HCPCS: 36415; 74177; 80053; 81001; 81025; 83690; 83735; 85025; 86140; 99283; 99284; J1885; J7030; Q9967

== ENCOUNTER 2024-03-14 11:03 | Outpatient (CLI) | payer OTHER, SELFPAY | END 2024-03-14 11:04 | disposition home or self-care (01) | PROVIDERS: PCP Family Medicine; Visit Provider Emergency Medicine | DX: F10.10 Alcohol abuse, uncomplicated (principal); R53.83 Other fatigue; Z13.29 Encounter for screening for other suspected endocrine disorder; Z13.0 Encounter for screening for diseases of the blood and blood-forming organs and certain disorders involving the immune mechanism | CPT/HCPCS: 80076; 82077; 84443; 85730 ==

== ENCOUNTER 2024-03-28 12:49 | Outpatient (CLI) | payer OTHER, SELFPAY ==
--- NOTE | 2024-03-28 13:00 | MR_ITS ---
[facility] [address] [facility] [address] Phone:?[phone] Fax:?[phone] Referring Physician Information: EBENEZER Morejon [address] [facility] [address] Phone:?[phone] Fax:?[phone] Patient:Asa Augustine D.O.B:?1995 Sex:?Female Phone:?[phone] [facility] MRN:?[id number] Exam Date:?03/28/2024 EXAM: MRI OF THE LEFT KNEE CLINICAL INFORMATION: The patient is a 28-year-old with left knee pain. Evaluate for medial meniscal tear. PRIOR SURGERY: None reported. COMPARISON STUDIES: Comparison is made to prior radiographs dated 03/21/2024. TECHNICAL INFORMATION: Imaging was performed on a high-field, 1.5 Briana MR scanner. Axial proton-density and fat-suppressed T2 imaging was produced in addition to sagittal proton-density and fat-suppressed proton-density imaging. Coronal proton-density and coronal STIR imaging was performed. FINDINGS: Articular/Extraarticular collections: Effusion: Mild. Popliteal cyst: Small to moderate, seen on sagittal series 6 image 11. Loose bodies: No well-defined intra-articular loose bodies are present. Subcutaneous and extraarticular soft tissues: Within normal limits. Osseous structures: Increased fat-suppressed signal intensity can be seen within the central and medial aspects of the proximal tibia, noted to best advantage on sagittal series 6 image 11 and on coronal series 8 image 20. The findings are also seen on axial series 4 image 24. The findings are in keeping with resolving changes of contusion or stress injury. No well-defined fracture or bony destruction can be seen. No other bony abnormalities about the knee are present. No osteochondral injuries along the articular surfaces are present. Ligamentous structures: ACL: Intact and normal in appearance. PCL: Intact and normal in appearance. MCL: Intact and normal in appearance. LCL: Intact and normal in appearance. Posterolateral corner: Intact and normal in appearance. Posteromedial corner: No posteromedial corner soft tissue injury. Semimembranosus and pes anserine tendons demonstrate no tendinopathy or associated bursitis. Extensor mechanism/Patellar retinacular structures: Patellar tendon: Intact, without tendinopathy. Quadriceps tendon: Intact, without tendinopathy. Retinacula: The medial and lateral retinacula are intact. The medial patellofemoral ligament is intact. Medial compartment: Medial meniscus: No evidence for medial meniscal tearing can be seen. There is no evidence for parameniscal cyst formation. No meniscocapsular separation injury is identified. Medial femoral condyle: No chondromalacia, chondral defect, or osteochondral abnormality. Medial tibial plateau: No chondromalacia, chondral defect, or osteochondral abnormality. Lateral compartment: Lateral meniscus: No evidence for lateral meniscal tearing is present. No evidence for parameniscal cyst formation can be seen. Lateral femoral condyle: No chondromalacia, chondral defect, or osteochondral abnormality. Lateral tibial plateau: No chondromalacia, chondral defect, or osteochondral abnormality. Patellofemoral compartment: Patella: No chondromalacia, chondral defect, or osteochondral abnormality. Trochlea: No chondromalacia, chondral defect, or osteochondral abnormality. Neurovascular: No definite neurovascular abnormalities are seen. CONCLUSION: 1. Increased fat-suppressed signal intensity within the central and medial aspects of the proximal tibia. The findings are consistent with resolving contusion or stress injury. No well-defined fracture is seen. 2. No evidence for medial or lateral meniscal tearing is identified. 3. The cruciate and collateral ligaments appear intact. 4. No chondral injuries are seen. 5. Mild knee joint effusion and [id number] popliteal cyst. [facility] Electronically signed on 03/29/2024 8:18:00 AM by Geronimo Godwin M.D.
== END 2024-03-28 12:50 | disposition home or self-care (01) ==
LOC: MRI 12:50
PROVIDERS: PCP Family Medicine; Visit Provider Physician Assistant Surgical
DX: M25.562 Pain in left knee (principal); M25.462 Effusion, left knee
CPT/HCPCS: 73721

== ENCOUNTER 2024-05-30 09:11 | Outpatient (CLI) | payer OTHER, SELFPAY ==
[2024-06-01 03:05] LABS: HPV Source Cervical; HPV, High Risk by TMA Detected
[2024-06-02 15:39] LABS: HPV Genotype 16 by TMA Not Detected; HPV Genotype 18/45 by TMA Not Detected; HPVG Source Cervical
[2024-06-06 14:11] LABS: Pap Test Reviewed by Path Done
== END 2024-05-30 09:12 | disposition home or self-care (01) ==
PROVIDERS: PCP Family Medicine; Visit Provider Family Medicine
DX: F10.10 Alcohol abuse, uncomplicated (principal); Z11.59 Encounter for screening for other viral diseases; Z12.4 Encounter for screening for malignant neoplasm of cervix
CPT/HCPCS: 80048; 80076; 87624; 87625; 88141; 88142

== ENCOUNTER 2025-04-07 21:02 | Emergency (ER) | payer OTHER, SELFPAY ==
[2025-04-07 21:15] VITALS: BP 154/111; PULSE 112; RESP 18; TEMP 36.7; O2SAT 96
--- NOTE | 2025-04-07 21:40 | ED_ITS ---
HPI - Psych General Chief Complaint: Laceration/Wound Stated Complaint: Altered mental status Time Seen by Provider: 04/07/25 21:06 History of Present Illness HPI Narrative: This 29-year-old female is brought in by police department because of self- inflicted wounds to her right upper leg and some possibility of suicidal ideation. The patient does take psychotropic medications and also admits to using alcohol every day. She does not appear intoxicated and is cooperative and pleasant. She states that she had an argument with her boyfriend and sometimes she flips into self injury then very quickly questions why she did that. She denies any feelings or thoughts of being unsafe. As I entered the room she was talking with her boyfriend and they were pleasant and speaking lovingly toward each other. Related Data Home Medications ?Medication ?Instructions ?Recorded ?Confirmed paraguard intrauterine 02/11/22 Previous Rx's ?Medication ?Instructions ?Recorded albuterol sulfate 90 mcg/actuation 2 puff inhalation Q 4-6H PRN 02/11/22 aerosol inhaler (ProAir HFA) shortness of breath or wh eezing #8.5 grams naproxen 500 mg tablet 500 mg PO BID PRN pain #60 t abs 03/18/24 bupropion HCl 300 mg 24 hr tablet, 300 mg PO QAM #90 t abs 01/03/25 extended release (Wellbutrin XL) dextroamphetamine-amphetamine ER 30 mg PO QAM #30 caps 01/03/25 30 mg 24hr capsule,extend release (Adderall XR) dextroamphetamine-amphetamine ER 30 mg PO QAM #30 caps 01/03/25 30 mg 24hr capsule,extend release (Adderall XR) dextroamphetamine-amphetamine ER 30 mg PO QAM #30 caps 01/03/25 30 mg 24hr capsule,extend release (Adderall XR) fluoxetine 40 mg capsule 80 mg (2 x 40 mg) PO QDAY #1 80 caps 01/03/25 naltrexone 50 mg tablet 50 mg PO QDAY #90 tabs 01/03 trazodone 50 mg tablet 75 mg (1.5 x 50 mg) PO QDAY #135 01/03/25 tabs ondansetron 8 mg disintegrating 8 mg PO Q8H PRN nausea and 01/16/25 tablet vomiting #20 tabs lorazepam 1 mg tablet 1 mg PO BID PRN alcohol with drawal 02/06/25 #60 tabs Allergies Allergy/AdvReac Type Severity Reaction Status Date / Time amoxicillin Allergy Unknown Unknown Verified 01/14/25 10:10 Review of Systems Status of ROS: Reports: 10 or more systems reviewed and unremarkable except as noted in History and below Narrative: Constitutional: No fevers, no weight gain or loss. Eyes: No discharge. No vision changes. HENT: No congestion, no sore throat, no ear pain. Cardiovascular: No chest pain, no palpitations. Respiratory: No shortness of breath, no wheezes, no cough. Gastrointestinal: No abdominal pain, no vomiting, no diarrhea. Genitourinary: No dysuria, no hematuria. Musculoskeletal: Normal range of motion. Skin: No rashes, no pruritis. Neurological: No dizziness, weakness, sensory change, speech change. Endo/Heme/Allergies: No bruising or bleeding. No polydipsia. Pysch: she denies suicidality. She states that she occasionally gets lots of stress and then sometimes injures herself to divert herself away from the emotional duress. All other systems reviewed and are negative. [facility] Medical History (Updated 04/07/25 @ 22:20 by Vasile Jacques MD) Generalized anxiety disorder ?F41.1 - Generalized anxiety disorder (ICD-10) Asthma ?J45.909 - Unspecified asthma, uncomplicated (ICD-10) ETOH abuse ?F10.10 - Alcohol abuse, uncomplicated (ICD-10) ADHD, predominantly inattentive type ?F90.0 - Attention-deficit hyperactivity disorder, predominantly inattentive type (ICD-10) ASCUS with positive high risk HPV Suicidal ideation ?R45.851 - Suicidal ideations (ICD-10) Insomnia ?G47.00 - Insomnia, unspecified (ICD-10) Seasonal allergies ?J30.2 - Other seasonal allergic rhinitis (ICD-10) Major depression, recurrent ?F33.9 - Major depressive disorder, recurrent, unspecified (ICD-10) Surgical History Normal spontaneous vaginal delivery ?O80 - Encounter for full-term uncomplicated delivery (ICD-10) History of lumpectomy (2008) ?Z98.890 - Other specified postprocedural states (ICD-10) Family History Mother Bipolar 1 disorder Maternal Grandmother Cancer Other Breast cancer Social History (Updated 01/05/25 @ 00:46 by Michele Bella MD) Narrative: Single, Live in boyfriend - one kid, 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 History Heavy alcohol use - 6-8 beers per day and multiple shots of Tequila, now does not drink every day tobacco abuse 10-12 a day-4 years What is your current living situation?: I presently have a place to live Problems where you live: no known problems In the past 12 months, utilities in danger of being shut off: no In past 12 months, lack of transportation kept you from medical appts, meetings, work, or getting things needed for daily living: no In the past 12 mos, have been you worried that your food would run out before you had money to buy more?: never true In the past 12 mos, the food you bought just didn't last and you didn't have money to buy more?: never true Smoking Status: Current every day smoker What tobacco products do you use: cigarettes Smoking packs per day: 0.5 Smoking cigarettes per day: 10.0 Years smoked: 10 Smoking pack-years: 5.00 Do you use any of these nicotine containing products: None Second hand tobacco smoke exposure: No How often do you have a drink containing alcohol: 4 or more times a week How many standard drinks containing alcohol do you have on a typical day: 5 or 6 How often do you have six or more drinks on one occasion: Weekly AUDIT-C Alcohol total score: 9 Non-prescribed substance use: denies use How often does anyone, including family, friends and others, physically hurt you : never How often does anyone, including family, friends and others, insult or talk down to you: sometimes How often does anyone, including family, friends and others, threaten you with harm: rarely How often does anyone, including family, friends and others, scream or curse at you: sometimes service: No Health Related Social Needs: Other personal risk factors, not elsewhere classified (Z91.89) Exam Narrative: Exam Narrative: Constitutional: Well-developed, well-nourished, no acute distress. HEENT: Normocephalic, atraumatic. Neck: Normal range of motion. Nontender. Supple. Heart: Intact distal pulses. Lungs: No chest discomfort. No wheezes, rhonchi, or rales. Abdomen: Nontender. Back: Normal range of motion. Extremities: Normal range of motion. Several scars on the anterior right thigh from previous self injury. She has 2 wounds that would benefit from repair that are most recent. One wound is approximately 9 cm in length and the other approximately 8 cm. Skin: Intact. No rash. Warm. No erythema or pallor. Neurologic: No altered sensation. No weakness. Alert and oriented. Psychiatric: No suicidality. No anxiety or depression. No insomnia. Nursing notes and vitals signs are reviewed. Const: Vital Signs, click to edit/add: Vital Signs - 24 hr 04/07/25 21:15 Temperature 98.1 F Pulse Rate [Pulse Oximeter] 112 H Respiratory Rate 18 Blood Pressure [Ri ght Upper Arm] 154/111 H Pulse Oximetry 96 Oxygen Delivery Me thod Room Air Course Vital Signs Vital signs: Initial Vital Signs Temperature 98.1 F 04/07/25 21:15 Temperature Source Temporal Artery Scan 04/07/25 21:15 Pulse Rate 112 H 04/07/25 21:15 Respiratory Rate 18 04/07/25 21:15 Blood Pressure 154/111 H 04/07/25 21:15 Blood Pressure Mean 125 H 04/07/25 21:15 Blood Pressure Position Sitting 04/07/25 21:15 Pulse Oximetry 96 04/07/25 21:15 Oxygen Delivery Method Room Air 04/07/25 21:15 Vital Signs Temperature 98.1 F 04/07/25 21:15 Pulse Rate 112 H 04/07/25 21:15 Respiratory Rate 18 04/07/25 21:15 Blood Pressure 154/111 H 04/07/25 21:15 Pulse Oximetry 96 04/07/25 21:15 Oxygen Delivery Method Room Air 04/07/25 21:15 Temperature 98.1 F 04/07/25 21:15 Pulse Rate 112 H 04/07/25 21:15 Respiratory Rate 18 04/07/25 21:15 Blood Pressure 154/111 H 04/07/25 21:15 Pulse Oximetry 96 04/07/25 21:15 Oxygen Delivery Method Room Air 04/07/25 21:15 MDM - Psych MDM Narrative Medical decision making narrative: This patient comes in because of self injury. She is denying any suicidality or feeling unsafe. She does state that she had a disagreement with her boyfriend and things are now resolved. She does have 2 large lacerations on her right thigh that were self-inflicted. Next to this are several scars from previous wounds which she states occurred back in her teenage years. The current wounds on her thigh would benefit from repair. After anesthesia with 1% lidocaine I did cleanse the wound. The larger wound is about 9 cm in length and received 8 sutures of 4.0 Ethilon suture to repair the wound. The other wound is about 8 cm in length and received 7 sutures using 4.0 Ethilon suture. The wound edges are nicely approximated. Instructions regarding wound care were given and the need to return to clinic for suture removal in 7-10 days. As for the psychiatric evaluation. I had a long conversation with the patient while repairing these wounds and am reassured with regard to her safety. She owns a hoarse and has a 5-year-old child and had a rather normal discussion with her about various matters of life. She is okay to be discharged home. I did advise her to return if feeling like she needs to harm herself. Discharge Plan Discharge Clinical Impression: Laceration, Encounter for psychiatric assessment Patient Disposition: Home, Self-Care Condition: Improved Additional Instructions: Keep wounds clean and dry. Follow-up with clinic in 7-10 days for suture removal. Return if worsening. Prescriptions: No Action paraguard intrauterine albuterol sulfate [ProAir HFA] 90 mcg/actuation HFA aerosol inhaler 2 puff inhalation Q4-6H PRN (Reason: shortness of breath or wheezing) Qty: 8.5 1RF trazodone 50 mg tablet 75 mg PO QDAY Qty: 135 1RF bupropion HCl [Wellbutrin XL] 300 mg tablet extended release 24 hr 300 mg PO QAM Qty: 90 1RF naltrexone 50 mg tablet 50 mg PO QDAY Qty: 90 1RF fluoxetine 40 mg capsule 80 mg PO QDAY Qty: 180 1RF dextroamphetamine-amphetamine [Adderall XR] 30 mg capsule,extended release 24hr 30 mg PO QAM Qty: 30 0RF dextroamphetamine-amphetamine [Adderall XR] 30 mg capsule,extended release 24hr 30 mg PO QAM Qty: 30 0RF dextroamphetamine-amphetamine [Adderall XR] 30 mg capsule,extended release 24hr 30 mg PO QAM Qty: 30 0RF naproxen 500 mg tablet 500 mg PO BID PRN (Reason: pain) Qty: 60 5RF ondansetron 8 mg tablet,disintegrating 8 mg PO Q8H PRN (Reason: nausea and vomiting) Qty: 20 0RF lorazepam 1 mg tablet 1 mg PO BID PRN (Reason: alcohol withdrawal) Qty: 60 0RF Follow Up/Referrals: Michele Bella MD [Primary Care Provider, Family Practice] Stand Alone Forms: [facility] [facility] Info Instructions
--- NOTE | 2025-04-08 09:53 | PC.SOCIAL ---
Social Work: Received call from [facility] worker Kelli French, requesting MD note from ED visit 03/07/25 be sent to her as there is an open CPS case for pt's child. Secure emailed requested MD note to [email or web address]. Provided Kelli French with contact information for ED and Director of ED for any additional questions.
== END 2025-04-07 23:04 | disposition home or self-care (01) ==
PROVIDERS: Emergency Provider Emergency Medicine Emergency Medical Services; PCP Family Medicine
DX: Z04.6 Encounter for general psychiatric examination, requested by authority (principal); S71.111A Laceration without foreign body, right thigh, initial encounter; X78.9XXA Intentional self-harm by unspecified sharp object, initial encounter
CPT/HCPCS: 12005; 99283; 99284